=== PATIENT | female | born 1970 | race Caucasian/White ===

== ENCOUNTER 2017-07-17 12:31 | Emergency (ER) | payer BC, OTHER ==
[~2017-07-17] VITALS: Ht 162.6 cm; Wt 70.4 kg
[2017-07-17 12:35] VITALS: Ht 162.6 cm; Wt 70.4 kg
[2017-07-17] MEDS ORDERED: FAMOTIDINE 20 MG TAB PO STA (12:46)
[2017-07-17] MEDS ORDERED: SUCRALFATE 1 GM TAB PO STA (12:46)
[2017-07-17] MEDS ORDERED: GI COCKTAIL PO STA (12:46)
[2017-07-17 12:48] VITALS: O2SAT 97
[2017-07-17] MEDS ORDERED: LIDOCAINE HCL 2% VISC SOLN 20 ML UDC ONE (13:00)
[2017-07-17] MEDS ORDERED: ALUMINUM/MAGNESIUM SUSP 30 ML UDC ONE (13:00)
--- NOTE | 2017-07-17 13:00 | EMERGENCY ROOM VISIT NOTE ---
History Report prepared by Jaquelin: Sena Hernandez Under the Supervision of: Dr. Waldo Ferrara M.D. First contact with patient: 12:37 Chief Complaint: CHEST PAIN Stated Complaint: CHEST PAIN, L ARM PAIN, L SHOULDER BLADE PAIN Nursing Triage Summary: triage note: pt reports mid chest pain since 0715 today. pt reports pain down left arm and pain in left shoulder blade. History of Present Illness The patient is a 47 year old female who presents to the Emergency Room with complaints of constant chest pain beginning this morning. The patient states that she has been having pressure in the center of her chest today that is not worsened or relieved by anything. She reports that the pain began radiating down her left arm and in her shoulder before she decided to come in to the ED. The patient notes a history of peptic acidosis and fibromyalgia. She states that she has never had a stress test before and notes that her grandfather had cardiac history that began in his 60s. She denies any shortness of breath, cough , leg swelling, leg pain, and recent trips. She reports that she ate this morning around 3 hours ago but the pain started prior to eating. Source of History: patient Onset: this morning Position: chest Quality: pressure Timing: constant Modifying Factors (Worsening): other (none) Modifying Factors (Relieving): other (none) Associated Symptoms: No cough, No SOB Note: Pt complains of shoulder pain, left arm pain. Pt denies leg swelling, leg pain. Review of Systems See HPI for pertinent positives & negatives. A total of 10 systems reviewed and were otherwise negative. Past Medical & Surgical Medical Problems: (1) Fibromyalgia Family History FH: heart attack Social History Smoking Status: Never Smoker Smokeless Tobacco Use: No Drug Use: none Marital Status: Housing Status: lives with family Current/Historical Medications Scheduled Aspirin (Aspirin 81 Low Dose), 1 TAB PO UD Bdlshck-Pxablspwqpuyo-Spjaqjig (Excedrin Extra Strength), 2 TABS PO UD B-Complex W/ Folic Acid (B Complex Plus), 1 TAB PO QAM Famotidine (Pepcid), 40 MG PO HS Fexofenadine Hcl (Char Allergy), 1 TAB PO QAM Allergies Coded Allergies: No Known Allergies (Verified , 07/17/17) Uncoded Allergies: N (Allergy, Unknown, 01/03/03) NKA (Allergy, Unknown, 01/03/03) Physical Exam Vital Signs Date Time Temp Pulse Resp B/P (MAP) Pulse Ox O2 Delivery O2 Flow Rate FiO2 07/17/17 16:04 78 14 107/63 97 07/17/17 15:20 91 16 123/63 97 Room Air 07/17/17 14:37 83 18 134/86 99 Room Air 07/17/17 13:46 67 18 127/73 97 Room Air 07/17/17 13:03 70 07/17/17 12:48 97 Room Air 07/17/17 12:35 36.8 74 18 134/78 99 Room Air Physical Exam GENERAL: Patient is a healthy-appearing well-nourished female HEAD: Normocephalic atraumatic EYES: Ocular movements intact pupils equal and react to light OROPHARYNX mucous membranes are moist no exudates present no erythema or edema present NECK: Supple no nuchal rigidity CHEST: Good equal expansion LUNGS: Clear and equal to auscultation CARDIAC: Normal S1 and S2 ABDOMEN: Soft nontender no guarding BACK: No CVA tenderness EXTREMITIES: No pain upon palpation normal muscle strength in all groups no clubbing cyanosis or edema NEURO: Patient is following commands and answering questions appropriately. Alert and oriented x3 Cranial Nerves 2-12 grossly intact Medical Decision & Procedures ER Provider Diagnostic Interpretation: X-ray results as stated below per interpretation by me and the radiologist: CHEST ONE VIEW PORTABLE FINDINGS: Cardiomediastinal and hilar silhouettes are within normal limits. Mild biapical pleural-parenchymal scarring is noted without pneumothorax, pleural effusion or focal airspace consolidation. No overt pulmonary edema. The bones of the chest appear grossly intact. IMPRESSION: No acute cardiopulmonary process. The above report was generated using voice recognition software. It may contain grammatical, syntax or spelling errors. Electronically signed by: Ha Christine M.D. 07/17/2017 1:32 PM Dictated Date/Time: 07/17/2017 1:32 PM Laboratory Results 07/17/17 12:48 Red Blood Count 4.10, Mean Corpuscular Volume 89.8, Mean Corpuscular Hemoglobin 31.5, Mean Corpuscular Hemoglobin Concent 35.1, Mean Platelet Volume 8.8, Neutrophils (%) (Auto) 66.6, Lymphocytes (%) (Auto) 23.9, Monocytes (%) (Auto) 6.0, Eosinophils (%) (Auto) 2.6, Basophils (%) (Auto) 0.6, Neutrophils # (Auto) 5.19, Lymphocytes # (Auto) 1.86, Monocytes # (Auto) 0.47, Eosinophils # (Auto) 0.20, Basophils # (Auto) 0.05 07/17/17 12:48 Test 07/17/17 12:48 07/17/17 14:16 White Blood Count 7.79 K/uL (4.8-10.8) Red Blood Count 4.10 M/uL (4.2-5.4) Hemoglobin 12.9 g/dL (12.0-16.0) Hematocrit 36.8 % (37-47) Mean Corpuscular Volume 89.8 fL (80-100) Mean Corpuscular Hemoglobin 31.5 pg (25-34) Mean Corpuscular Hemoglobin Concent 35.1 g/dl (32-36) Platelet Count 320 K/uL (130-400) Mean Platelet Volume 8.8 fL (7.4-10.4) Neutrophils (%) (Auto) 66.6 % Lymphocytes (%) (Auto) 23.9 % Monocytes (%) (Auto) 6.0 % Eosinophils (%) (Auto) 2.6 % Basophils (%) (Auto) 0.6 % Neutrophils # (Auto) 5.19 K/uL (1.4-6.5) Lymphocytes # (Auto) 1.86 K/uL (1.2-3.4) Monocytes # (Auto) 0.47 K/uL (0.11-0.59) Eosinophils # (Auto) 0.20 K/uL (0-0.5) Basophils # (Auto) 0.05 K/uL (0-0.2) RDW Standard Deviation 45.9 fL (36.4-46.3) RDW Coefficient of Variation 13.9 % (11.5-14.5) Immature Granulocyte % (Auto) 0.3 % Immature Granulocyte # (Auto) 0.02 K/uL (0.00-0.02) Anion Gap 6.0 mmol/L (3-11) Est Creatinine Clear Calc Drug Dose 72.8 ml/min Estimated GFR () 87.0 Estimated GFR (Non- 75.1 BUN/Creatinine Ratio 15.7 (10-20) Calcium Level 8.6 mg/dl (8.5-10.1) Total Bilirubin 0.3 mg/dl (0.2-1) Direct Bilirubin < 0.1 mg/dl (0-0.2) Aspartate Amino Transf (AST/SGOT) 7 U/L (15-37) Alanine Aminotransferase (ALT/SGPT) 14 U/L (12-78) Alkaline Phosphatase 56 U/L (45-117) Total Creatine Kinase 83 U/L (26-192) Creatine Kinase MB 0.8 ng/ml (0.5-3.6) Creatine Kinase MB Ratio 1.0 (0-3.0) Total Protein 7.5 gm/dl (6.4-8.2) Albumin 3.7 gm/dl (3.4-5.0) Lipase 110 U/L (73-393) Troponin I < 0.015 ng/ml (0-0.045) Labs reviewed by ED physician. Medications Administered Medications (Trade) Dose Ordered Sig/Usman Route Start Time Stop Time Status Last Admin Dose Admin Miscellaneous Medication (Gi Cocktail) 24 ml NOW STAT PO 07/17/17 12:46 07/17/17 12:48 DC 07/17/17 13:02 24 ML Famotidine (Pepcid Tab) 20 mg NOW STAT PO 07/17/17 12:46 07/17/17 12:48 DC 07/17/17 13:02 20 MG Sucralfate (Carafate Tab) 1 gm NOW STAT PO 07/17/17 12:46 07/17/17 12:48 DC 07/17/17 13:02 1 GM Al Hydroxide/Mg Hydroxide (Maalox Susp) 30 ml STK-MED ONCE .ROUTE 07/17/17 13:00 07/17/17 13:01 DC 07/17/17 13:02 30 ML Lidocaine HCl (Viscous Lidocaine 2% Soln) 20 ml STK-MED ONCE .ROUTE 07/17/17 13:00 07/17/17 13:01 DC 07/17/17 13:02 20 ML Morphine Sulfate (MoRPHine SULFATE INJ) 6 mg NOW STAT IV 07/17/17 14:10 07/17/17 14:12 DC 07/17/17 14:27 6 MG Metoclopramide HCl (Reglan Inj) 10 mg NOW STAT IV 07/17/17 14:11 07/17/17 14:12 DC 07/17/17 14:27 10 MG Sodium Chloride 500 ml @ 999 mls/hr Q31M STAT IV 07/17/17 14:11 07/17/17 14:41 DC 07/17/17 14:26 999 MLS/HR ECG Indication: chest pain Rate (beats per minute): 63 Rhythm: normal sinus Findings: no acute ischemic change, no ectopy Change: EKG #2: Normal Sinus, 69, no ectopy, no ischemia ED Course 1237: Past medical records reviewed. The patient was evaluated in room A10. A complete history and physical examination was performed. 1246: Sucralfate 1 gm PO, Pepcid Tab 20mg PO, GI Cocktail 24ml PO. 1402: I reevaluated and updated the patient. 1410: Morphine Sulfate 6mg IV. 1411: Sodium Chloride 500 ml @ 999 mls/hr IV, Reglan Inj 10mg IV. 1550: Upon reexamination the patient is doing well. I discussed results and treatment plan with the patient. She verbalizes agreement and understanding. The patient is ready for discharge. Medical Decision Differential diagnosis: Etiologies such as cardiac ischemia, aortic dissection, pulmonary embolism, pneumonia, pneumothorax, musculoskeletal, infections, pericarditis, myocarditis , esophageal rupture, gastrointestinal, as well as others were entertained. History: Slightly suspicious (0) Moderately suspicious (+1) Highly suspicious (+2) EKG: No ST depression but LBBB, LVH, repolarization changes +[address] depression +2 Age: <45 (0) 45-65 (+1) >65 (+2) Risk factors HTN, hypercholesterolemia, DM, obesity (BMI >30 kg/m), smoking, Positive family hx; atherosclerotic disease: prior VT, PCI/CABG, CVA/TIA or peripheral artery disease 1-2 risk factors +1 >3 risk factors: +2 Initial Troponin: 1-2x normal limit:+1 >2 normal limit =2 Heart SCORE: 1 This is a 47-year-old female that presents emergency department complaining of chest pain along with left arm pain. The patient does not have any significant risk factors. My suspicion of a PE is low as the patient is not tachycardic has not been on any recent visits and has no history of blood clots in the family. She has a normal EKG here in the emergency department. This was repeated and there were no changes between her EKG. In addition the patient also has normal troponins that were serially drawn. Based on these findings I feel that the patient can be safely discharged home for follow-up with cardiology. The patient was given a GI cocktail, Pepcid and Carafate with some improvement of her symptoms. She was then given an additional dose of morphine which totally resolved her symptoms. Medication Reconcilliation Current Medication List: was personally reviewed by me Blood Pressure Screening Patient's blood pressure: Normal blood pressure Blood pressure disposition: Did not require urgent referral Impression Primary Impression: Precordial chest pain Scribe Attestation The scribe's documentation has been prepared under my direction and personally reviewed by me in its entirety. I confirm that the note above accurately reflects all work, treatment, procedures, and medical decision making performed by me. Departure Information Dispostion Home / Self-Care Prescriptions Famotidine (Pepcid) 40 Mg Tab 40 MG PO HS for 7 Days, #7 TAB Prov: Waldo Ferrara MD 07/17/17 Referrals Louann Trivedi, KartikOPamela (PCP) Forms Call Back Authorization, HOME CARE DOCUMENTATION FORM, IMPORTANT VISIT INFORMATION Patient Instructions Chest Pain - [facility], My [facility] Additional Instructions Follow up with Dr Llanos's office this week No strenuous activity until follow up Clear liquid diet next 48 hours Take 5 ml Maalox before every meal and at bedtime You received narcotic or benzodiazepene medication while in the emergency room today. Do not drive, operate heavy machinery, or drink alcohol under the influence of this medication. You have been examined and treated today on an emergency basis only. This is not a substitute for, or an effort to provide, complete comprehensive medical care. It is impossible to recognize and treat all injuries or illnesses in a single emergency department visit. It is therefore important that you follow up closely with Dr Trivedi. Call as soon as possible for an appointment. Thank you for your time and consideration. I look forward to speaking with you again soon. Please don't hesitate to call us if you have any questions.
[2017-07-17 13:19] LABS: BASO % 0.6 %; BASO ABS # 0.05 K/uL (0-0.2); COMPLETE YES; EOS % 2.6 %; HEMATOCRIT 36.8 % (37-47); IG% 0.3 %; LYMPH % 23.9 %; LYMPH ABS # 1.86 K/uL (1.2-3.4); MEAN CELL VOLUME 89.8 fL (80-100); MEAN CORPUSCULAR HEMOGLOBIN 31.5 pg (25-34); MEAN CORPUSCULAR HGB CONC 35.1 g/dl (32-36); MEAN PLATELET VOLUME 8.8 fL (7.4-10.4); NEUT % 66.6 %; PLATELET COUNT 320 K/uL (130-400); WHITE BLOOD COUNT 7.79 K/uL (4.8-10.8)
--- NOTE | 2017-07-17 13:34 | DIAGNOSTIC IMAGING REPORT ---
CHEST ONE VIEW PORTABLE HISTORY: 47 years-old Female CHEST PAIN COMPARISON: None available TECHNIQUE: Portable upright AP view of the chest FINDINGS: Cardiomediastinal and hilar silhouettes are within normal limits. Mild biapical pleural-parenchymal scarring is noted without pneumothorax, pleural effusion or focal airspace consolidation. No overt pulmonary edema. The bones of the chest appear grossly intact. IMPRESSION: No acute cardiopulmonary process. The above report was generated using voice recognition software. It may contain grammatical, syntax or spelling errors. Electronically signed by: Ha Christine M.D. 07/17/2017 1:32 PM Dictated Date/Time: 07/17/2017 1:32 PM
[2017-07-17] MEDS ORDERED: ASPI-391 PO (13:36)
[2017-07-17] MEDS ORDERED: FEXO1TAB49 PO (13:36)
[2017-07-17] MEDS ORDERED: ASPI1CHW12 PO (13:37)
[2017-07-17] MEDS ORDERED: B-CO-27 PO (13:37)
[2017-07-17 13:41] LABS: ALT/SGPT 14 U/L (12-78); AST/SGOT 7 U/L (15-37); BLOOD UREA NITROGEN 14 mg/dl (7-18); BUN/CREATININE RATIO 15.7 (10-20); CALCIUM 8.6 mg/dl (8.5-10.1); CARBON DIOXIDE 27 mmol/L (21-32); CHLORIDE 107 mmol/L (98-107); GLUCOSE 83 mg/dl (70-99); POTASSIUM 3.7 mmol/L (3.5-5.1); SODIUM 140 mmol/L (136-145)
[2017-07-17 13:46] LABS: ALKALINE PHOSPHATASE 56 U/L (45-117)
[2017-07-17] MEDS ORDERED: MoRPHine SULFATE 10 MG/ML CARP/VIAL IV STA (14:10)
[2017-07-17] MEDS ORDERED: METOCLOPRAMIDE HCL INJ 5 MG/ML 2 ML VIAL IV STA (14:11)
[2017-07-17] MEDS ORDERED: SODIUM CHLORIDE 0.9% 500ML 500 ML IV STA (14:11)
[2017-07-17] MEDS ORDERED: FAMO40TA6 PO (15:48)
[2017-07-17 16:04] VITALS: BP 107/63; PULSE 78; O2SAT 97
== END 2017-07-17 16:05 | disposition home or self-care (01) ==
LOC: C.EDB 12:33 → C.EDA 16:05
DX: R07.2 Precordial pain (principal); M79.7 Fibromyalgia